=== PATIENT | male | born 1950 | race African-American/Black ===

== ENCOUNTER 2016-06-03 06:44 | Inpatient (IN) | payer OTHER, MEDICARE ==
[2016-05-28 15:26] LABS: BASOPHILS 0.4 %; BASOPHILS ABSOLUTE 0.02 10/3/uL (0.0-0.16); EOSINOPHILS 5.3 %; EOSINOPHILS ABSOLUTE 0.27 10/3/uL (0.0-0.53); HEMATOCRIT 35.4 % (40.0-51.0); HEMOGLOBIN 12.2 g/dL (13.6-17.8); IMMATURE GRANULOCYTES 0.2 %; IMMATURE GRANULOCYTES ABSOLUTE 0.01 10/3/uL (0.0-0.11); LYMPHOCYTES 29.4 %; MEAN CORPUS HGB CONC 34.5 g/dL (32.0-36.0); MEAN CORPUSCULAR HEMOGLOB 27.8 pg (26.0-34.0); MEAN CORPUSCULAR VOLUME 80.6 fL (80-100); MEAN PLATELET VOLUME 9.8 fL (9.2-13.0); MONOCYTES 9.6 %; MONOCYTES ABSOLUTE 0.49 10/3/uL (0.21-1.20); NEUTROPHILS 55.1 %; NEUTROPHILS ABSOLUTE 2.82 10/3/uL (2.02-8.40); PLATELET COUNT 192 10/3/uL (150-400); RBC DISTRIBUTION WIDTH 15.8 % (12.0-16.0); RED CELL COUNT 4.39 10/6/uL (4.7-6.1); WHITE BLOOD CELLS 5.1 10/3/uL (4.5-10.5)
[2016-05-28 15:27] LABS: MANUAL DIFF NO %
[2016-05-28 15:36] LABS: INTERNATIONAL NORMAL RATI 1.1 UNITS (-); PARTIAL THROMBO TIME 30.5 SEC (22.5-37.2); PROTIME (NOT ORD) 13.6 SEC (12.0-14.5)
[2016-05-28 15:41] LABS: A/G RATIO 0.9 (0.7-1.9); ALKALINE PHOSPHATASE 87 U/L (45-117); BUN (BLOOD UREA NITROGEN) 14 MG/DL (6-23); CALCIUM, SERUM 9.7 MG/DL (8.5-10.4); CHLORIDE, SERUM 103 MMOL/L (96-112); CO2 (CARBON DIOXIDE) 33 MMOL/L (24-34); CREATININE 1.05 MG/DL (0.70-1.30); GFR AFRICAN AMERICAN 87 ML/MIN (>=60); GFR NON AFRICAN AMERICAN 75 ML/MIN (>=60); GLOBULIN 4.4 G/DL (2.5-4.1); GLUCOSE, SERUM 100 MG/DL (60-99); POTASSIUM, SERUM 3.5 MMOL/L (3.5-5.3); SGOT(AST) 19 U/L (5-40); SGPT(ALT) 22 U/L (5-65); SODIUM, SERUM 142 MMOL/L (135-148); TOTAL BILIRUBIN 0.3 MG/DL (0-1.2); TOTAL PROTEIN 8.4 G/DL (6.0-8.5)
--- NOTE | ~2016-06-03 | OP ---
Record Of Operation [facility] [address] [place]. [address] NAME: ERROL CASTRO JR : 52 STATUS : ADM IN PAT#: [id number] AGE: 65 ADM/REG DATE : 06/03/16 MR#: [id number] REPORT SERV DATE: 06/04/16 DICTATED BY: GISELLE BROWNE JR. DATE: 06/03/16 REPORT STATUS : Draft TRANSCRIBED BY: YOSEF DATE: 06/03/16 DATE OF PROCEDURE: [employer] LEADER: Ariana Negrete. 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 ANESTHESIA: General. INDICATIONS: This patient had presented with a soft tissue sarcoma of the right lateral thigh. He was treated with neoadjuvant radiation therapy. He had a satisfactory response. There was no evidence of unresectability. No evidence of any metastatic disease and resection was indicated. FINDINGS: There was a necrotic mass which was present within the musculature of the lateral portion of the leg. This appeared to be mostly in the peroneus longus muscle. A radical resection of the compartment which included the peroneus longus, a portion of the soleus gastroc as well that was undertaken. This was carried down with the medial border being the peroneal artery which was preserved. The gross examination with pathology did show grossly negative margins with necrotic tumor and final assessment deferred to permanent section. The outlines of the resection site were marked with clips. This did extend also to the fibula where a portion of the periosteum was excised as the deep margin. DESCRIPTION OF PROCEDURE: With adequate general anesthesia, the patient was placed in the supine position. The right leg was prepped and draped sterilely. A longitudinally oriented elliptical incision incorporating the previous incisional biopsy site was made, and incision deepened down into the subcutaneous tissues. Subcutaneous flaps were raised anteriorly, medially, and posteriorly to allow resection of the tumor. Then the fascia was incised and the radical resection of the musculature as noted above was undertaken to remove the tumor and surrounding musculatures in the compartment. Bleeding was controlled with electrocautery and also with sutures of Prolene for arterial branches and sutures of silk as needed. The wound was irrigated with sterile water. Hemostasis was assured also with Surgicel Fibrillar and with Evicel. Clips were utilized to darlene the tumor bed. The wound was then closed with subcutaneous 0 Vicryl, also with sutures of 2-0 nylon. An overlay negative pressure VAC dressing was placed. The leg was then wrapped into 2 layer wrap dressing. He left the operating room in satisfactory condition. ESTIMATED BLOOD LOSS: 100 mL. CHIOMA/RONNYL Record Of Operation [address] [address] NAME: ERROL CASTRO : 51 STATUS : ADM [facility]#: [id number] AGE: 65 ADM/REG DATE : 06/03/16 MR#: [id number] REPORT SERV DATE: 06/04/16 DICTATED BY: GISELLE BROWNE JR. DATE: 06/03/16 REPORT STATUS : Draft TRANSCRIBED BY: YOSEF DATE: 06/03/16 Giselle Browne Jr., M.D. / [id number] CC: Giselle Browne Jr., M.D.
--- NOTE | ~2016-06-03 | OP ---
Record Of Operation [facility] [address] [place]. [address] NAME: ERROL ARDON JR : 51 STATUS : ADM IN PAT#: [id number] AGE: 65 ADM/REG DATE : 06/03/16 MR#: [id number] REPORT SERV DATE: 06/03/16 DICTATED BY: MARQUEZ WILDER JR. DATE: 06/03/16 REPORT STATUS : Draft TRANSCRIBED BY: MODL DATE: 06/03/16 DATE OF PROCEDURE: 06/03/2016 SURGEON: Marquez Wilder M.D. PREOPERATIVE DIAGNOSIS: Difficult Metzger placement. POSTOPERATIVE DIAGNOSIS: Difficult Metzger placement. PROCEDURE PERFORMED: Cystoscopy, dilation of the bladder neck, placement of 16-Senegalese Te-Moak-tip Metzger catheter. COMPLICATIONS: None. CONSULTATIONS: None. ANESTHESIA: General with endotracheal tube. SPECIMENS: None. DRAINS: 16-Senegalese Te-Moak-tip Metzger catheter. ESTIMATED BLOOD LOSS: None. INDICATION: Mr. Ardon is a 65-year-old gentleman, who is postop still under anesthesia from a leg operation done by Dr. Manuel Baxter. They were dissatisfied with his Metzger catheter placement and were concerned that had been malpositioned. They asked me to come and checked the Metzger catheter and replace it properly if needed based on the Metzger catheter placement. They did not have any output from the catheter, and I felt like it could possibly be too distal and not quite into the bladder itself. I removed the Metzger and attempted to replace it without success using a 16-Senegalese coude catheter. I performed flexible cystoscopy at that time and noted a normal penile and bulbous urethra. The prostate was enlarged with what looked to be a bladder neck contracture. I am not sure if he had a prior microwave procedure or some other bladder outlet relieving procedure, but he had somewhat of a stiff bladder neck. I was able to manipulate the flexible cystoscope through this area without difficulties. I left a guidewire in place and attempted to place a 16-Senegalese Te-Moak-tip catheter over the wire without success. The bladder neck was too tight. I then used Amplatz dilators to dilate the bladder neck to 20-Senegalese and then successfully placed a 16- Senegalese Metzger catheter over the guide wire. The bladder was drained. The patient was awakened in the operating room, transferred to the Postanesthesia Care Unit in stable condition. I will leave his catheter for five to seven days prior to removal. I gave instructions with the nurse to call if there are any issues with the catheter itself. [place]/MODL Record Of Operation [facility] [address] [place]. [address] NAME: ERROL ARDON JR : 52 STATUS : ADM IN PAT#: [id number] AGE: 65 ADM/REG DATE : 06/03/16 MR#: [id number] REPORT SERV DATE: 06/03/16 DICTATED BY: MARQUEZ WILDER JR. DATE: 06/03/16 REPORT STATUS : Draft TRANSCRIBED BY: YOSEF DATE: 06/03/16 Marquez Wilder Jr., M.D. / [id number] CC: Manuel Baxter Jr., M.D.
--- NOTE | ~2016-06-03 | DS ---
Discharge Summary [facility] [address] [place]. [address] NAME: ERROL CASTRO JR : 52 STATUS : DIS IN PAT#: [id number] AGE: 65 ADM/REG DATE : 06/03/16 MR#: [id number] REPORT SERV DATE: 06/14/16 DICTATED BY: GISELLE BROWNE JR. DATE: 06/13/16 REPORT STATUS : Draft TRANSCRIBED BY: YOSEF DATE: 06/13/16 Data Collection from hospitalization DISCHARGE DIAGNOSES: 1. 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 2. Hypertension. 3. Hypothyroidism. 4. History of multiple myeloma, status post stem cell transplant. 5. Gastroesophageal reflux disease, controlled with medications. CONSULTATIONS: Dr. Marquez Wilder. PROCEDURES PERFORMED: 1. Cystoscopy, dilation of the bladder neck, placement of 16-Trinid[place] Harshaw-tip Metzger catheter by Dr. Marquez Wilder, 06/03/2016. 2. 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 PATHOLOGY: Right lower leg mass wide excision, residual malignant spindle cell neoplasm sarcoma, status post radiation therapy; right lower leg re-excision of distal margin, negative for tumor; right lower leg including bone, re-excision of proximal margin, negative for tumor; right lower leg including bone, reexcision of deep margin, negative for tumor. MEDICATIONS: Norvasc 5 mg every morning, hydrochlorothiazide 25 mg every morning, Pepcid 20 mg every 12 hours, ferrous sulfate 300 mg daily, heparin 5000 units subcutaneously every eight hours, Synthroid 125 mcg daily, Senokot S one daily, Tylenol 650 mg every four hours as needed, Phenergan 6.25 mg every four hours as needed, Immunocal one dose daily, Hemoplex one daily, and Prevacid 15 mg every morning. CONDITION AT DISCHARGE: Upon discharge, he did appear to be doing well and had no complaints. DISPOSITION: He had been discharged with transfer to [facility] to continue a regular diet with activity as discussed. He was to continue with physical therapy. He was to follow up with me in the office in two weeks. HOSPITAL COURSE: This 65-year-old male had presented with a soft tissue sarcoma of the right lateral thigh. He was treated with neoadjuvant radiation therapy. He had a satisfactory response. There was no evidence of unresectability. No evidence of any metastatic disease, and resection was indicated. Surgery had been discussed with the patient, and he was agreeable to proceed. He was admitted for this and further treatment. Upon admission to the hospital, he had been taken to the operating room. However, secondary to difficult Metzger placement, Dr. Marquez Wilder was consulted, and the patient first underwent the above cystoscopy with placement of a 16-Trinid[place] Harshaw-tip Metzger catheter as well as dilation of the bladder neck prior to Metzger placement. 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 He tolerated both procedures well and was transferred to the recovery room. On postop day #1, he did appear to be doing well and his pain was controlled with IV PIE MAKER. He was continued on this for the time being. He had also been evaluated by Physical Discharge Summary [address] [address] NAME: ERROL CASTRO : 52 STATUS : DIS IN PAT#: [id number] AGE: 65 ADM/REG DATE : 06/03/16 MR#: [id number] REPORT SERV DATE: 06/14/16 DICTATED BY: GISELLE BROWNE JR. DATE: 06/13/16 REPORT STATUS : Draft TRANSCRIBED BY: RONNYL DATE: 06/13/16 Therapy. On postop day #2, he did continue to do well. PIE MAKER was discontinued. He was continued on physical therapy. On postop day #3, he did remain in stable condition and his Metzger catheter was still in place. He continued to slowly improve and on 06/08/2016, he was then discharged with the above instructions. Information collected by: Della Galeano. I submit the above information as my discharge summary. CATHERINE/YOSEF Giselle Browne Jr., M.D. / [id number] CC: Zach Cuba Jr., M.D. William Young Jr., M.D. [facility]
[~2016-06-03 06:44] MED LIST: COZ25 PO; HYDROCHLOROT25 MG PO; IRON PO; MOBIC15 MG PO; MULTIVITAMI1 PO; NORV5 PO; POMALYST4 MG PO; PREV15 PO; SYN125 PO; WHEAT GRASS PO; [UNRECOGNIZED DRUG - OTHER] PO; [UNRECOGNIZED DRUG - OTHER] PO
[2016-06-04 05:41] LABS: BASOPHILS 0.1 %; BASOPHILS ABSOLUTE 0.01 10/3/uL (0.0-0.16); EOSINOPHILS ABSOLUTE 0.14 10/3/uL (0.0-0.53); HEMOGLOBIN 10.5 g/dL (13.6-17.8); IMMATURE GRANULOCYTES 0.1 %; IMMATURE GRANULOCYTES ABSOLUTE 0.01 10/3/uL (0.0-0.11); LYMPHOCYTES 13.8 %; LYMPHOCYTES ABSOLUTE 0.95 10/3/uL (0.67-4.30); MEAN CORPUS HGB CONC 34.7 g/dL (32.0-36.0); MEAN CORPUSCULAR HEMOGLOB 28.2 pg (26.0-34.0); MEAN CORPUSCULAR VOLUME 81.2 fL (80-100); MEAN PLATELET VOLUME 9.7 fL (9.2-13.0); MONOCYTES 10.4 %; MONOCYTES ABSOLUTE 0.72 10/3/uL (0.21-1.20); NEUTROPHILS 73.6 %; NEUTROPHILS ABSOLUTE 5.07 10/3/uL (2.02-8.40); PLATELET COUNT 171 10/3/uL (150-400); RBC DISTRIBUTION WIDTH 15.9 % (12.0-16.0); RED CELL COUNT 3.73 10/6/uL (4.7-6.1); WHITE BLOOD CELLS 6.9 10/3/uL (4.5-10.5)
[2016-06-04 05:42] LABS: HEMATOCRIT 30.3 % (40.0-51.0); MANUAL DIFF NO %
[2016-06-04 05:56] LABS: CHLORIDE, SERUM 106 MMOL/L (96-112); CREATININE 0.88 MG/DL (0.70-1.30); GFR AFRICAN AMERICAN 105 ML/MIN (>=60); GFR NON AFRICAN AMERICAN 91 ML/MIN (>=60); GLUCOSE, SERUM 109 MG/DL (60-99); POTASSIUM, SERUM 3.4 MMOL/L (3.5-5.3); SODIUM, SERUM 142 MMOL/L (135-148)
[2016-06-04 05:58] LABS: BUN (BLOOD UREA NITROGEN) 5 MG/DL (6-23); CALCIUM, SERUM 8.3 MG/DL (8.5-10.4); CO2 (CARBON DIOXIDE) 28 MMOL/L (24-34)
[2016-06-05 06:21] LABS: BASOPHILS 0.2 %; BASOPHILS ABSOLUTE 0.01 10/3/uL (0.0-0.16); EOSINOPHILS 4.4 %; EOSINOPHILS ABSOLUTE 0.28 10/3/uL (0.0-0.53); HEMATOCRIT 29.8 % (40.0-51.0); IMMATURE GRANULOCYTES 0.2 %; IMMATURE GRANULOCYTES ABSOLUTE 0.01 10/3/uL (0.0-0.11); LYMPHOCYTES 18.8 %; LYMPHOCYTES ABSOLUTE 1.19 10/3/uL (0.67-4.30); MEAN CORPUS HGB CONC 33.6 g/dL (32.0-36.0); MEAN CORPUSCULAR HEMOGLOB 27.5 pg (26.0-34.0); MEAN CORPUSCULAR VOLUME 81.9 fL (80-100); MEAN PLATELET VOLUME 10.1 fL (9.2-13.0); MONOCYTES 15.3 %; MONOCYTES ABSOLUTE 0.97 10/3/uL (0.21-1.20); NEUTROPHILS 61.1 %; NEUTROPHILS ABSOLUTE 3.88 10/3/uL (2.02-8.40); PLATELET COUNT 164 10/3/uL (150-400); RED CELL COUNT 3.64 10/6/uL (4.7-6.1); WHITE BLOOD CELLS 6.3 10/3/uL (4.5-10.5)
[2016-06-05 06:24] LABS: BUN (BLOOD UREA NITROGEN) 8 MG/DL (6-23); CALCIUM, SERUM 8.3 MG/DL (8.5-10.4); CHLORIDE, SERUM 107 MMOL/L (96-112); CO2 (CARBON DIOXIDE) 29 MMOL/L (24-34); CREATININE 0.86 MG/DL (0.70-1.30); GFR AFRICAN AMERICAN 106 ML/MIN (>=60); GFR NON AFRICAN AMERICAN 92 ML/MIN (>=60); GLUCOSE, SERUM 95 MG/DL (60-99); POTASSIUM, SERUM 3.5 MMOL/L (3.5-5.3); SODIUM, SERUM 142 MMOL/L (135-148)
[2016-06-05 06:31] LABS: MANUAL DIFF NO %
== END 2016-06-08 17:24 | DRG 464 ==
LOC: SDC/OF 06:44 → PACU 11:40 → 5SO 12:31
PROVIDERS: Specialist; Urology
PROC: 0T9B80Z Drainage of Bladder with Drainage Device, Via Natural or Artificial Opening Endoscopic (ICD-10-PCS; 2016-06-03)
PROC: 0JBN0ZZ Excision of Right Lower Leg Subcutaneous Tissue and Fascia, Open Approach (ICD-10-PCS; principal; 2016-06-03 07:45)
PROC: 0T7C8ZZ Dilation of Bladder Neck, Via Natural or Artificial Opening Endoscopic (ICD-10-PCS; 2016-06-03 07:45)
DX: C49.21 Malignant neoplasm of connective and soft tissue of right lower limb, including hip (principal); Z94.84 Stem cells transplant status; I10 Essential (primary) hypertension; E03.9 Hypothyroidism, unspecified; K21.9 Gastro-esophageal reflux disease without esophagitis; Z85.89 Personal history of malignant neoplasm of other organs and systems
CPT/HCPCS: 71020; 80048; 80053; 83735; 84132; 85025; 85610; 85730; 88305; 88307; 88309; 88311; 88331; 93005; 97110-GP; 97116-GP; 97161-GP; A9270-GY; C1726; C1758; C1769; G0463; G8978-CK-GP; G8979-CH-GP; J0690; J2175; J2270; J2405; J3010